=== PATIENT | male | born 1965 | race Two or more races ===

== ENCOUNTER 2025-05-28 18:51 | Emergency (ER) | payer OTHER ==
[~2025-05-28] VITALS: Ht 176.5 cm; Wt 147.4 kg
[2025-05-28] MEDS ORDERED: CLONAZEPAM2 M1 PO (19:44)
[2025-05-28] MEDS ORDERED: COZAAR50 MG PO (19:44)
[2025-05-28] MEDS ORDERED: ADIPEX-P37.5 M1 (19:45)
[2025-05-28] MEDS ORDERED: KETOROLAC TROMETHAMINE 30 MG VIAL IV ONE (20:30)
[2025-05-28] MEDS ORDERED: FAMOTIDINE/PF 20 MG/2 ML VIAL IV ONE (20:30)
[2025-05-28] MEDS ORDERED: METRONIDAZOLE/SODIUM CHLORIDE 500 MG/100 ML PIGGYBACK IV ONE (20:30)
[2025-05-28] MEDS ORDERED: DEXAMETHASONE SODIUM PHOSP/PF 10 MG/ML VIAL IV ONE (20:30)
[2025-05-28] MEDS ORDERED: CIPROFLOXACIN IN 5 % DEXTROSE 400 MG/200 ML PIGGYBAG IV ONE (20:30)
[2025-05-28 21:32] LABS: BASO % 0.3 % (0.1-1.2); EOS # 0.00 (0.04-0.54); EOS % 0.0 % (0.7-7.0); LYMPH # 0.67 (1.18-3.74); LYMPH % 6.5 % (19.3-53.1); MEAN PLATELET VOLUME 9.40 fl (9.4-12.4); MONO # 0.88 (0.24-0.82); MONO % 8.6 % (4.7-12.5); NEUT # 8.53 (1.56-6.13); NEUT % 83.4 % (34.0-71.1); RED CELL DISTRIBUTION WIDTH 13.5 % (11.6-14.4)
[2025-05-28 21:39] LABS: ERYTHROCYTE SEDIMENTATION RATE 67 mm/hr (0-20)
[2025-05-28 21:45] LABS: INR 1.22
[2025-05-28 21:51] LABS: ALT/SGPT 19.0 U/L (12-78); AST/SGOT 16.0 U/L (15-37); BILIRUBIN TOTAL 2.21 mg/dL (0.3-1.2); BUN CREA RATIO 23.0 (7.0-25.0); CREATININE SERUM 0.57 mg/dL (0.70-1.30); GFR 145.81; GLOBULINA 4.5 G/DL (2.4-3.5); GLUCOSE FASTING 131.0 mg/dL (65-100); OSMOLALITY SERUM 274.0 MOSM/KG (275-295)
[2025-05-28] MEDS ORDERED: GABAPENTIN 600 MG TABLET PO ONE (23:45)
[2025-05-29] MEDS ORDERED: KETO10TA2 PO (01:06)
[2025-05-29] MEDS ORDERED: CLEOCIN HCL300 MG PO (01:06)
== END 2025-05-29 01:54 | disposition home or self-care (01) ==
LOC: ER 18:52
PROVIDERS: Student in an Organized Health Care Education/Training Program
DX: L03.211 Cellulitis of face (principal); E66.01 Morbid (severe) obesity due to excess calories; I10 Essential (primary) hypertension; Z88.0 Allergy status to penicillin; K04.7 Periapical abscess without sinus